=== PATIENT | female | born 1980 | race Caucasian/White ===

== ENCOUNTER 2016-08-01 18:20 | Emergency (ER) | payer MEDICAID ==
[~2016-08-01] VITALS: Ht 157.5 cm; Wt 92.0 kg
[~2016-08-01 18:20] MED LIST: ALBU05; ALBU2.5V13
[2016-08-01] MEDS ORDERED: IPRATROPIUM/ALBUTEROL 0.5-3(2.5)MG/3ML NEB HHN ONE (20:45)
[2016-08-01 22:05] VITALS: BP 107/67
[2016-08-10] MEDS ORDERED: MONT10TA24 PO (14:44)
[2016-08-10] MEDS ORDERED: NASA BOTHNSTRLS (14:45)
== END 2016-08-01 22:25 | disposition home or self-care (01) ==
LOC: ER 21:11
DX: J45.901 Unspecified asthma with (acute) exacerbation (principal); Z90.49 Acquired absence of other specified parts of digestive tract
CPT/HCPCS: 71010; 81025; 94640; 99283; J7620

== ENCOUNTER 2016-08-02 21:35 | Emergency (ER) | payer MEDICAID ==
[~2016-08-02] VITALS: Ht 157.5 cm; Wt 113.0 kg
[2016-08-02] MEDS ORDERED: METHYLPREDNISOLONE SOD SUCC 125 MG/2 ML VIAL IV STA (21:46)
[2016-08-02] MEDS ORDERED: IPRATROPIUM BROMIDE (0.02%) 0.5MG/2.5ML NEB HHN STA (21:46)
[2016-08-02] MEDS: ALBUTEROL (0.083%) 2.5MG/3ML NEB HHN SCH ×3 (22:20→23:20)
[2016-08-02 22:42] LABS: EOSINOPHILS % 13.5 % (0.0-5.0); HEMATOCRIT. 40.5 % (36.0-48.0); HEMOGLOBIN. 13.9 g/dL (12.0-16.0); LYMPHOCYTES % 25.6 % (20.0-50.0); MEAN CORPUSCULAR HEMOGLOBIN 29.5 pg (28.0-32.0); MEAN CORPUSCULAR VOLUME 86.1 fL (81.0-99.0); MEAN PLATELET VOLUME 9.6 fl (7.4-10.4); MONOCYTES % 3.6 % (2.0-8.0); NEUTROPHILS % 56.3 % (40.0-76.0); PLATELET 262 x1000/uL (130-400); RED BLOOD CELL COUNT 4.71 mill/uL (4.2-5.4); RED CELL DISTRIBUTION WIDTH 13.6 % (11.6-14.6)
[2016-08-02 22:50] LABS: CARBON DIOXIDE 29 mEq/L (21-32); CHLORIDE 104 mEq/L (98-107)
[2016-08-03 00:06] VITALS: BP 110/58
== END 2016-08-03 00:09 | disposition home or self-care (01) ==
LOC: ER 21:47
DX: J45.901 Unspecified asthma with (acute) exacerbation (principal); Z90.49 Acquired absence of other specified parts of digestive tract
CPT/HCPCS: 36415; 71010; 80053; 85025; 94640; 96374; 99285; J2930; J7611; Z7610

== ENCOUNTER 2016-09-08 07:02 | Emergency (ER) | payer MEDICAID ==
[~2016-09-08] VITALS: Ht 157.5 cm; Wt 114.0 kg
[~2016-09-08 07:02] MED LIST changes: +MONT10TA24 PO; +NASA BOTHNSTRLS
[2016-09-08] MEDS ORDERED: IPRATROPIUM/ALBUTEROL 0.5-3(2.5)MG/3ML NEB HHN ONE (07:15)
[2016-09-08] MEDS ORDERED: AZITHROMYCIN 500 MG in DEXT 5% WATER 250 ML IV SCH (07:15)
[2016-09-08] MEDS ORDERED: MAGNESIUM 2 G PREMIX 50 ML IV ONE (07:15)
[2016-09-08] MEDS ORDERED: PREDNISONE 20MG TABLET PO STA (07:15)
[2016-09-08 07:47] LABS: BASOPHILS % 0.7 % (0.0-2.0); EOSINOPHILS % 13.9 % (0.0-5.0); HEMATOCRIT. 42.3 % (36.0-48.0); HEMOGLOBIN. 14.4 g/dL (12.0-16.0); LYMPHOCYTES % 23.3 % (20.0-50.0); MEAN CORPUSCULAR VOLUME 87.8 fL (81.0-99.0); MEAN PLATELET VOLUME 8.9 fl (7.4-10.4); MONOCYTES % 5.7 % (2.0-8.0); NEUTROPHILS % 56.4 % (40.0-76.0); PLATELET 260 x1000/uL (130-400); RED BLOOD CELL COUNT 4.81 mill/uL (4.2-5.4); RED CELL DISTRIBUTION WIDTH 13.7 % (11.6-14.6)
[2016-09-08 07:56] LABS: HCG SCREEN NEGATIVE; PARTIAL THROMBOPLASTIN TIME 26.1 sec (24.0-34.0); PROTHROMBIN TIME 10.2 sec
[2016-09-08 08:05] LABS: CARBON DIOXIDE 27 mEq/L (21-32); CHLORIDE 105 mEq/L (98-107); TROPONIN I < 0.02 ng/mL (0.00-0.04)
[2016-09-08 10:04] VITALS: BP 111/68
== END 2016-09-08 10:18 | disposition home or self-care (01) ==
LOC: ER 07:22
DX: J45.901 Unspecified asthma with (acute) exacerbation (principal)
CPT/HCPCS: 36415; 71010; 80053; 83605; 83880; 84443; 84484; 84703; 85025; 85610; 85730; 87040; 94640; 96365; 96366; 96368; 99285; J0456; J3475; J7512; Z7610; J7060; J7620

== ENCOUNTER 2016-09-10 00:36 | Emergency (ER) | payer MEDICAID ==
[~2016-09-10] VITALS: Ht 157.5 cm; Wt 84.0 kg
[2016-09-10] MEDS ORDERED: ALBUTEROL (0.083%) 2.5MG/3ML NEB HHN STA (01:29)
[2016-09-10] MEDS ORDERED: METHYLPREDNISOLONE SOD SUCC 125 MG/2 ML VIAL IV STA (01:29)
[2016-09-10] MEDS ORDERED: SODIUM CHLORIDE 0.9% 1,000 ML IV ONE (01:29)
[2016-09-10] MEDS ORDERED: IPRATROPIUM BROMIDE (0.02%) 0.5MG/2.5ML NEB HHN STA (01:29)
[2016-09-10] MEDS ORDERED: MAGNESIUM 2 G PREMIX 50 ML IV STA (01:29)
[2016-09-10 04:30] VITALS: BP 105/67
== END 2016-09-10 05:17 | disposition home or self-care (01) ==
LOC: ER 00:47
DX: J45.901 Unspecified asthma with (acute) exacerbation (principal); R03.0 Elevated blood-pressure reading, without diagnosis of hypertension
CPT/HCPCS: 71010; 96361; 96365; 96366; 96375; 99291; J2930; J3475; J7030; J7611; Z7610

== ENCOUNTER 2016-09-15 01:31 | Emergency (ER) | payer MEDICAID ==
[~2016-09-15] VITALS: Ht 157.5 cm; Wt 114.0 kg
[2016-09-15] MEDS ORDERED: METHYLPREDNISOLONE SOD SUCC 125 MG/2 ML VIAL IV STA (01:45)
[2016-09-15] MEDS ORDERED: MAGNESIUM 2 G PREMIX 50 ML IV STA (01:45)
[2016-09-15] MEDS ORDERED: ALBUTEROL (0.083%) 2.5MG/3ML NEB HHN STA (01:45)
[2016-09-15] MEDS ORDERED: IPRATROPIUM BROMIDE (0.02%) 0.5MG/2.5ML NEB HHN STA (01:45)
[2016-09-15] MEDS ORDERED: SODIUM CHLORIDE 0.9% 1,000 ML IV ONE (01:45)
[2016-09-15] MEDS ORDERED: ALBUTEROL (0.5%) 2.5MG/0.5ML NEB HHN ONE (02:23)
[2016-09-15 04:24] VITALS: BP 139/82
== END 2016-09-15 04:45 | disposition home or self-care (01) ==
LOC: ER 01:31
DX: J45.901 Unspecified asthma with (acute) exacerbation (principal); Z90.49 Acquired absence of other specified parts of digestive tract
CPT/HCPCS: 94640; 96365; 96366; 96375; 99285; J2930; J3475; J7030; J7611; Z7610

== ENCOUNTER 2019-05-25 05:24 | Emergency (ER) | payer MEDICAID ==
[~2019-05-25] VITALS: Ht 157.5 cm; Wt 111.0 kg
[~2019-05-25 05:24] MED LIST changes: -MONT10TA24 PO; +MONT10TA26 PO
[2019-05-25] MEDS ORDERED: ACYCLOVIR 400 MG TABLET PO ONE (06:30)
[2019-05-25] MEDS ORDERED: METHYLPREDNISOLONE SOD SUCC 125 MG/2 ML VIAL IM ONE (06:30)
[2019-05-25] MEDS ORDERED: KETOROLAC 30MG/ML VIAL IM ONE (06:30)
[2019-05-25 06:55] VITALS: BP 130/95
== END 2019-05-25 07:18 | disposition home or self-care (01) ==
LOC: ER 05:24
DX: B02.9 Zoster without complications (principal); J45.909 Unspecified asthma, uncomplicated; Z90.49 Acquired absence of other specified parts of digestive tract; Z79.899 Other long term (current) drug therapy; Z87.440 Personal history of urinary (tract) infections
CPT/HCPCS: 81025; 96372; 99284; J1885; J2930

== ENCOUNTER 2019-09-23 05:02 | Emergency (ER) | payer MEDICAID ==
[~2019-09-23] VITALS: Ht 157.5 cm; Wt 112.0 kg
[2019-09-23] MEDS ORDERED: ALBUTEROL (0.083%) 2.5MG/3ML NEB HHN STA (06:35)
[2019-09-23] MEDS ORDERED: IPRATROPIUM BROMIDE (0.02%) 0.5MG/2.5ML NEB HHN STA (06:35)
[2019-09-23] MEDS ORDERED: METHYLPREDNISOLONE SOD SUCC 125 MG/2 ML VIAL IV STA (06:35)
[2019-09-23 09:30] VITALS: BP 114/72
== END 2019-09-23 09:46 | disposition home or self-care (01) ==
LOC: ER 05:02
DX: J45.901 Unspecified asthma with (acute) exacerbation (principal); Z79.899 Other long term (current) drug therapy
CPT/HCPCS: 71045; 81025; 93005; 94640; 96374; 99283; J2930; Z7610

== ENCOUNTER 2019-11-03 03:41 | Emergency (ER) | payer MEDICAID ==
[~2019-11-03] VITALS: Ht 157.5 cm; Wt 119.0 kg
[2019-11-03 04:15] LABS: EOSINOPHILS % 2.3 % (0.0-5.0); HEMOGLOBIN. 13.7 g/dL (12.0-16.0); LYMPHOCYTES % 20.1 % (20.0-50.0); MEAN CORPUSCULAR HEMOGLOBIN 29.9 pg (28.0-32.0); MEAN CORPUSCULAR VOLUME 87.6 fL (81.0-99.0); MEAN PLATELET VOLUME 9.3 fl (7.4-10.4); MONOCYTES % 7.1 % (2.0-8.0); NEUTROPHILS % 69.5 % (40.0-76.0); PLATELET 234 x1000/uL (130-400); RED BLOOD CELL COUNT 4.57 mill/uL (4.2-5.4); RED CELL DISTRIBUTION WIDTH 12.9 % (11.6-14.6)
[2019-11-03 04:21] LABS: CHLORIDE 107 mEq/L (98-107)
[2019-11-03 04:25] LABS: ETHANOL BLOOD < 10 mg/dL
[2019-11-03 04:26] LABS: HCG SCREEN NEGATIVE
[2019-11-03] MEDS ORDERED: IPRATROPIUM BROMIDE (0.02%) 0.5MG/2.5ML NEB HHN STA (05:02)
[2019-11-03] MEDS ORDERED: ALBUTEROL (0.083%) 2.5MG/3ML NEB HHN STA (05:02)
[2019-11-03] MEDS ORDERED: KETOROLAC 30MG/ML VIAL IV ONE (05:15)
[2019-11-03 07:18] VITALS: BP 105/69
== END 2019-11-03 07:19 | disposition home or self-care (01) ==
LOC: ER 03:41
DX: R07.89 Other chest pain (principal); J45.901 Unspecified asthma with (acute) exacerbation
CPT/HCPCS: 36415; 71045; 80053; 80320; 83690; 83880; 84484; 84703; 85025; 93005; 94640; 96374; 99285; J1885; Z7610; G0480

== ENCOUNTER 2020-03-19 16:31 | Emergency (ER) | payer MEDICAID ==
[~2020-03-19] VITALS: Ht 157.5 cm; Wt 117.0 kg
[~2020-03-19 16:31] MED LIST changes: -MONT10TA26 PO; +MONT10TA32 PO
[2020-03-19] MEDS ORDERED: ACETAMINOPHEN 325MG TABLET PO ONE (18:15)
[2020-03-19 18:58] LABS: BASOPHILS % 0.7 % (0.0-2.0); EOSINOPHILS % 2.2 % (0.0-5.0); HEMATOCRIT. 42.7 % (36.0-48.0); HEMOGLOBIN. 14.1 g/dL (12.0-16.0); LYMPHOCYTES % 16.5 % (20.0-50.0); MEAN CORPUSCULAR HEMOGLOBIN 29.1 pg (28.0-32.0); MEAN CORPUSCULAR VOLUME 88.1 fL (81.0-99.0); MEAN PLATELET VOLUME 9.2 fl (7.4-10.4); MONOCYTES % 7.4 % (2.0-8.0); NEUTROPHILS % 73.2 % (40.0-76.0); PLATELET 227 x1000/uL (130-400); RED BLOOD CELL COUNT 4.85 mill/uL (4.2-5.4); RED CELL DISTRIBUTION WIDTH 13.6 % (11.6-14.6)
[2020-03-19 19:03] LABS: CHLORIDE 103 mEq/L (98-107)
[2020-03-19 19:08] LABS: HCG SCREEN NEGATIVE
[2020-03-19] MEDS ORDERED: IBUPROFEN 600MG TABLET PO ONE (20:15)
[2020-03-19 20:31] VITALS: BP 121/79
== END 2020-03-19 21:16 | disposition home or self-care (01) ==
LOC: ER 16:37
DX: R07.89 Other chest pain (principal)
CPT/HCPCS: 36415; 71045; 80053; 83880; 84484; 84703; 85025; 93005; 99284

== ENCOUNTER 2021-06-29 12:00 | Emergency (ER) | payer MEDICAID ==
[~2021-06-29] VITALS: Ht 162.6 cm; Wt 91.0 kg
[~2021-06-29 12:00] MED LIST changes: +TOPUD PO
[2021-06-29] MEDS ORDERED: HYDROCODONE/ACETAMINOPHEN 5/325MG TABLET PO ONE (12:45)
[2021-06-29] MEDS ORDERED: KETOROLAC 30MG/ML VIAL IM ONE (12:45)
[2021-06-29 12:56] VITALS: BP 110/72
[2021-06-29] MEDS ORDERED: CYCL10TA7 MT (14:15)
[2021-06-29] MEDS ORDERED: NAPR-1176 MT (14:15)
== END 2021-06-29 14:39 | disposition home or self-care (01) ==
LOC: ER 12:35
DX: M54.9 Dorsalgia, unspecified (principal); J45.909 Unspecified asthma, uncomplicated; F41.9 Anxiety disorder, unspecified
CPT/HCPCS: 96372; 99283; J1885

== ENCOUNTER 2021-12-21 00:08 | Emergency (ER) | payer MEDICAID ==
[~2021-12-21] VITALS: Ht 157.5 cm; Wt 115.2 kg
[~2021-12-21 00:08] MED LIST changes: +CYCL10TA21 MT; +MONT-39 PO; -MONT10TA32 PO; +NAPR-1176 MT
[2021-12-21] MEDS ORDERED: IPRATROPIUM BROMIDE (0.02%) 0.5MG/2.5ML NEB HHN STA (00:34)
[2021-12-21] MEDS ORDERED: METHYLPREDNISOLONE SOD SUCC 125 MG/2 ML VIAL IV STA (00:34)
[2021-12-21] MEDS ORDERED: MAGNESIUM 2 G PREMIX 50 ML IV ONE (00:45)
[2021-12-21] MEDS: ALBUTEROL (0.083%) 2.5MG/3ML NEB HHN SCH ×3 (01:04→02:05)
[2021-12-21] MEDS ORDERED: PRED10TA MT (01:15)
[2021-12-21 02:00] VITALS: BP 128/65
== END 2021-12-21 03:21 | disposition home or self-care (01) ==
LOC: ER 00:08
DX: J45.909 Unspecified asthma, uncomplicated (principal); Z97.5 Presence of (intrauterine) contraceptive device
CPT/HCPCS: 71045; 93005; 96365; 96375; 99291; J2930; J3475; Z7610

== ENCOUNTER 2022-04-17 07:09 | Emergency (ER) | payer MEDICAID ==
[~2022-04-17] VITALS: Ht 157.5 cm; Wt 115.0 kg
[~2022-04-17 07:09] MED LIST changes: +PRED10TA MT
[2022-04-17] MEDS ORDERED: IPRATROPIUM BROMIDE (0.02%) 0.5MG/2.5ML NEB HHN STA (07:42)
[2022-04-17] MEDS ORDERED: PREDNISONE 20MG TABLET PO ONE (07:45)
[2022-04-17 07:57] LABS: CHLORIDE 106 mEq/L (98-107)
[2022-04-17 08:21] LABS: BASOPHILS % 0.9 % (0.0-2.0); EOSINOPHILS % 6.8 % (0.0-5.0); HEMATOCRIT. 42.5 % (36.0-48.0); HEMOGLOBIN. 14.6 g/dL (12.0-16.0); LYMPHOCYTES % 22.3 % (20.0-50.0); MEAN CORPUSCULAR VOLUME 87.5 fL (81.0-99.0); MEAN PLATELET VOLUME 9.6 fl (7.4-10.4); MONOCYTES % 4.9 % (2.0-8.0); NEUTROPHILS % 65.1 % (40.0-76.0); PLATELET 279 x1000/uL (130-400); RED BLOOD CELL COUNT 4.86 mill/uL (4.2-5.4); RED CELL DISTRIBUTION WIDTH 13.9 % (11.6-14.6)
[2022-04-17] MEDS: ALBUTEROL (0.083%) 2.5MG/3ML NEB HHN SCH ×3 (08:44→09:17)
[2022-04-17] MEDS ORDERED: ALBU6.7H3 INH (09:14)
[2022-04-17] MEDS ORDERED: P20 MT (09:14)
[2022-04-17 09:30] VITALS: BP 128/80
== END 2022-04-17 09:31 | disposition home or self-care (01) ==
LOC: ER 07:09
DX: J45.901 Unspecified asthma with (acute) exacerbation (principal); Z90.49 Acquired absence of other specified parts of digestive tract
CPT/HCPCS: 36415; 71045; 80053; 85025; 93005; 94640; 99285; J7512; Z7610

== ENCOUNTER 2022-04-25 22:47 | Emergency (ER) | payer MEDICAID ==
[~2022-04-25] VITALS: Ht 157.5 cm; Wt 122.0 kg
[~2022-04-25 22:47] MED LIST changes: +ALBU6.7H3 INH; +P20 MT
[2022-04-25 22:58] VITALS: BP 142/101
[2022-04-25] MEDS ORDERED: ALBUTEROL (0.083%) 2.5MG/3ML NEB HHN ONE (23:30)
[2022-04-25] MEDS ORDERED: PREDNISONE 10MG TABLET PO SCH (23:30)
[2022-04-26] MEDS ORDERED: ALBUTEROL (0.083%) 2.5MG/3ML NEB HHN ONE (00:45)
[2022-04-26] MEDS ORDERED: ALBU6.7H3 INH (02:50)
[2022-04-26] MEDS ORDERED: MED4 MT (02:50)
== END 2022-04-26 03:27 | disposition home or self-care (01) ==
LOC: ER 22:47
DX: J45.901 Unspecified asthma with (acute) exacerbation (principal); R94.31 Abnormal electrocardiogram [ECG] [EKG]; Z90.49 Acquired absence of other specified parts of digestive tract
CPT/HCPCS: 71045; 93005; 94640; 99284; J7512; Z7610

== ENCOUNTER 2022-05-27 07:20 | Inpatient (IN) | payer MEDICAID ==
[~2022-05-27] VITALS: Ht 157.5 cm; Wt 90.7 kg
[~2022-05-27 07:20] MED LIST changes: +ALBU05 NEB; +MED4 MT; +MONT-46 MT; +P50 MT
[2022-05-27] MEDS ORDERED: IPRATROPIUM BROMIDE (0.02%) 0.5MG/2.5ML NEB HHN STA (07:49)
[2022-05-27] MEDS ORDERED: METHYLPREDNISOLONE SOD SUCC 125 MG/2 ML VIAL IV STA (07:49)
[2022-05-27] MEDS ORDERED: MAGNESIUM 2 G PREMIX 50 ML IV ONE (08:00)
[2022-05-27] MEDS: ALBUTEROL (0.083%) 2.5MG/3ML NEB HHN SCH ×3 (08:03→09:58)
[2022-05-27 08:46] LABS: HEMATOCRIT. 43.7 % (36.0-48.0); HEMOGLOBIN. 14.8 g/dL (12.0-16.0); MEAN CORPUSCULAR HEMOGLOBIN 29.6 pg (28.0-32.0); MEAN CORPUSCULAR VOLUME 87.2 fL (81.0-99.0); MEAN PLATELET VOLUME 8.5 fl (7.4-10.4); PLATELET 305 x1000/uL (130-400); RED BLOOD CELL COUNT 5.01 mill/uL (4.2-5.4); RED CELL DISTRIBUTION WIDTH 13.9 % (11.6-14.6)
[2022-05-27 08:53] LABS: CHLORIDE 103 mEq/L (98-107)
[2022-05-27 09:07] LABS: HCG SCREEN NEGATIVE
[2022-05-27 09:35] LABS: PLATELET ESTIMATE NORMAL
[2022-05-27] MEDS ORDERED: IPRATROPIUM/ALBUTEROL 0.5-3(2.5)MG/3ML NEB HHN PRN (11:00)
[2022-05-27] MEDS: IPRATROPIUM/ALBUTEROL 0.5-3(2.5)MG/3ML NEB HHN SCH ×3 (11:31→21:44)
[2022-05-27] MEDS: LORATADINE 10MG TABLET PO SCH (12:44)
[2022-05-27] MEDS: METHYLPREDNISOLONE SOD SUCC 125 MG/2 ML VIAL IV SCH ×2 (12:44→20:09)
[2022-05-27] MEDS ORDERED: ONDANSETRON HCL 4MG/2ML INJ IV PRN (13:15)
[2022-05-27] MEDS ORDERED: CEFTRIAXONE 1GM PREMIX 50 ML IV NR (13:15)
[2022-05-27] MEDS: MONTELUKAST SODIUM 10MG TABLET PO SCH (20:09)
[2022-05-27 20:35] VITALS: BP 105/69
[2022-05-27] MEDS: FAMOTIDINE 20MG/2ML VIAL IV SCH (22:16)
[2022-05-27] MEDS: GUAIFENESIN 600MG ER TABLET PO SCH (22:16)
[2022-05-27 22:22] VITALS: BP 105/69
[2022-05-27] MEDS ORDERED: NIRM1TAB (23:23)
[2022-05-27] MEDS ORDERED: ALBU18HF2 IH (23:23)
[2022-05-28] VITALS: BP 124/53
[2022-05-28] MEDS: METHYLPREDNISOLONE SOD SUCC 125 MG/2 ML VIAL IV SCH ×4 (00:16→17:38)
[2022-05-28] MEDS: IPRATROPIUM/ALBUTEROL 0.5-3(2.5)MG/3ML NEB HHN SCH ×6 (00:55→20:24)
[2022-05-28 04:00] VITALS: BP 108/68
[2022-05-28 06:38] LABS: HEMATOCRIT. 42.3 % (36.0-48.0); HEMOGLOBIN. 14.3 g/dL (12.0-16.0); MEAN CORPUSCULAR HEMOGLOBIN 29.5 pg (28.0-32.0); MEAN CORPUSCULAR VOLUME 87.5 fL (81.0-99.0); MEAN PLATELET VOLUME 8.5 fl (7.4-10.4); PLATELET 308 x1000/uL (130-400); RED BLOOD CELL COUNT 4.83 mill/uL (4.2-5.4); RED CELL DISTRIBUTION WIDTH 13.6 % (11.6-14.6)
[2022-05-28 07:06] LABS: CHLORIDE 104 mEq/L (98-107)
[2022-05-28 08:00] VITALS: BP 112/68
[2022-05-28] MEDS: LORATADINE 10MG TABLET PO SCH (08:54)
[2022-05-28] MEDS: GUAIFENESIN 600MG ER TABLET PO SCH ×2 (08:54→20:20)
[2022-05-28] MEDS: FAMOTIDINE 20MG/2ML VIAL IV SCH (08:54)
[2022-05-28] MEDS ORDERED: CEFTRIAXONE 1,000 MG in DEXTROSE 5% WATER 50 ML IV SCH (09:00)
[2022-05-28 09:27] LABS: PLATELET ESTIMATE NORMAL
[2022-05-28] MEDS: CEFTRIAXONE 1,000 MG in DEXTROSE 5% WATER 50 ML IV SCH (10:45)
[2022-05-28] MEDS ORDERED: INFLUENZA VACCINE 05/PF 0.5 ML SYRINGE IM ONE (11:00)
[2022-05-28] MEDS ORDERED: PNEUMOCOCCAL 23-VAL P-SAC VAC 0.5 ML IM ONE (11:00)
[2022-05-28 12:26] VITALS: BP 112/58
[2022-05-28 15:52] VITALS: BP 112/64
[2022-05-28] MEDS: MONTELUKAST SODIUM 10MG TABLET PO SCH (17:36)
[2022-05-28 20:00] VITALS: BP 120/64
[2022-05-28] MEDS: FAMOTIDINE 20MG TABLET PO SCH (20:20)
[2022-05-29] VITALS: BP 141/75
[2022-05-29] MEDS: IPRATROPIUM/ALBUTEROL 0.5-3(2.5)MG/3ML NEB HHN SCH ×5 (00:08→21:00)
[2022-05-29] MEDS: METHYLPREDNISOLONE SOD SUCC 125 MG/2 ML VIAL IV SCH ×4 (00:16→18:56)
[2022-05-29 04:00] VITALS: BP 109/65
[2022-05-29 06:50] LABS: MEAN CORPUSCULAR HEMOGLOBIN 30.2 pg (28.0-32.0); MEAN CORPUSCULAR VOLUME 88.3 fL (81.0-99.0); MEAN PLATELET VOLUME 8.5 fl (7.4-10.4); PLATELET 317 x1000/uL (130-400); RED BLOOD CELL COUNT 4.65 mill/uL (4.2-5.4); RED CELL DISTRIBUTION WIDTH 13.7 % (11.6-14.6)
[2022-05-29 08:00] VITALS: BP 141/77
[2022-05-29 08:09] LABS: CHLORIDE 105 mEq/L (98-107)
[2022-05-29] MEDS: LORATADINE 10MG TABLET PO SCH (10:20)
[2022-05-29] MEDS: GUAIFENESIN 600MG ER TABLET PO SCH ×2 (10:20→21:13)
[2022-05-29] MEDS: FAMOTIDINE 20MG TABLET PO SCH ×2 (10:20→21:13)
[2022-05-29 12:00] VITALS: BP 115/70
[2022-05-29 13:57] LABS: PLATELET ESTIMATE NORMAL
[2022-05-29] MEDS: CEFTRIAXONE 1,000 MG in DEXTROSE 5% WATER 50 ML IV SCH (14:56)
[2022-05-29 16:00] VITALS: BP 100/61
[2022-05-29] MEDS: MONTELUKAST SODIUM 10MG TABLET PO SCH (17:00)
[2022-05-29 20:00] VITALS: BP 138/75
[2022-05-30] VITALS: BP 127/58
[2022-05-30] MEDS: METHYLPREDNISOLONE SOD SUCC 125 MG/2 ML VIAL IV SCH ×3 (00:45→12:25)
[2022-05-30] MEDS: IPRATROPIUM/ALBUTEROL 0.5-3(2.5)MG/3ML NEB HHN SCH ×4 (00:49→13:15)
[2022-05-30 04:00] VITALS: BP 100/55
[2022-05-30 06:39] LABS: HEMATOCRIT. 41.9 % (36.0-48.0); HEMOGLOBIN. 14.1 g/dL (12.0-16.0); MEAN CORPUSCULAR HEMOGLOBIN 29.9 pg (28.0-32.0); MEAN CORPUSCULAR VOLUME 88.6 fL (81.0-99.0); MEAN PLATELET VOLUME 8.4 fl (7.4-10.4); PLATELET 325 x1000/uL (130-400); RED BLOOD CELL COUNT 4.73 mill/uL (4.2-5.4)
[2022-05-30 07:07] LABS: CHLORIDE 102 mEq/L (98-107)
[2022-05-30 08:00] VITALS: BP 119/59
[2022-05-30 08:43] LABS: CLARITY URINE CLEAR (CLEAR); COLOR URINE YELLOW (YELLOW); KETONES URINE NEGATIVE (NEGATIVE); LEUKOCYTE ESTERASE URINE NEGATIVE (NEGATIVE); NITRITE URINE NEGATIVE (NEGATIVE); OCCULT BLOOD URINE NEGATIVE (NEGATIVE); PROTEIN URINE NEGATIVE (NEGATIVE); SPECIFIC GRAVITY URINE 1.022 (1.005-1.030); UROBILINOGEN URINE 0.2 E.U./dL (0.2-1.0)
[2022-05-30] MEDS: GUAIFENESIN 600MG ER TABLET PO SCH (09:27)
[2022-05-30] MEDS: FAMOTIDINE 20MG TABLET PO SCH (09:27)
[2022-05-30] MEDS: LORATADINE 10MG TABLET PO SCH (09:27)
[2022-05-30 12:00] VITALS: BP 109/55
[2022-05-30] MEDS: CEFTRIAXONE 1,000 MG in DEXTROSE 5% WATER 50 ML IV SCH (12:25)
[2022-05-30 13:47] LABS: PLATELET ESTIMATE NORMAL
[2022-05-30 16:34] VITALS: BP 108/65
[2022-05-30] MEDS ORDERED: METHYLPREDNISOLONE SOD SUCC 40 MG/ML VIAL IV SCH (22:00)
== END 2022-05-30 18:59 | disposition home or self-care (01) | DRG 133 ==
LOC: ER 07:38 → 7EST 10:05 → EDBEDREQSVC 16:26 → ENRESERV 17:54
PROVIDERS: ADMIT Internal Medicine; ATTEND Internal Medicine
PROC: 5A09357 Assistance with Respiratory Ventilation, Less than 24 Consecutive Hours, Continuous Positive Airway Pressure (ICD-10-PCS; principal; 2022-05-27)
DX: J96.00 Acute respiratory failure, unspecified whether with hypoxia or hypercapnia (principal); E44.1 Mild protein-calorie malnutrition; J45.901 Unspecified asthma with (acute) exacerbation; I48.92 Unspecified atrial flutter; E66.9 Obesity, unspecified; I10 Essential (primary) hypertension; Z68.36 Body mass index [BMI] 36.0-36.9, adult; D72.829 Elevated white blood cell count, unspecified; Z20.822 Contact with and (suspected) exposure to COVID-19; Z86.16 Personal history of COVID-19
CPT/HCPCS: 36415; 71045; 80048; 80053; 81003; 83880; 84145; 84484; 84703; 85025; 87426; 87804; 90686; 90732; 93005; 93970; 94640; 94660; 99291; C9803; J0696; J2930; J3475; J3490; J7060